=== PATIENT | male | born 1990 | race Hispanic/Latino ===

== ENCOUNTER 2022-07-25 20:26 | Emergency (ER) | payer SELFPAY ==
--- NOTE | ~2022-07-25 | CT_ITS ---
CT of the Abdomen and Pelvis: Indication: Abdominal pain Technique: 2.5 mm axial scans were obtained through the abdomen and pelvis following intravenous adm inistration of 100 cc of Omnipaque 350. Dose reduction technique was used on this scan by utilizing a utomated exposure control and iterative reconstruction technique. The dose-length product (DLP) was 3 39.85 mGy-cm. Findings: Scans through the lung bases are unremarkable. The liver, spleen, pancreas, gallbladder, adrenals and kidneys are within normal limits. No evidence of aortic aneurysm. No lymphadenopathy. No bowel obstruction or bowel wall thickening. There is no evidence to suggest acute appendicitis. Images through the pelvis were performed. Urinary bladder unremarkable. Prostate gland and seminal ve sicles are unremarkable. No ascites. Impression: No significant abnormalities seen. Reviewed, dictated and finalized at [facility]. 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
[2022-07-25 20:27] VITALS: BP 124/81; PULSE 99; RESP 14; O2SAT 98
[2022-07-25 21:38] LABS: Basophils Percent Auto 0.4 % (0.2-1.2); Eosinophils Absolute Auto 0.2 K/mm3 (0-0.3); Eosinophils Percent Auto 1.6 % (0-4.4); Hemoglobin 14.7 g/dL (14.0-18.0); Immature Granulocyte Absolute 0.07 K/mm3 (0.00-0.031); Immature Granulocyte Percent A 0.7 % (0-0.5); Lymphocytes Absolute Auto 0.66 K/mm3 (0.9-3.2); Lymphocytes Percent Auto 6.9 % (18.3-44.2); Mean Corpuscular Hemoglobin 31.5 pg (26-34); Mean Corpuscular Volume 89.9 fl (80-100); Mean Platelet Volume 11.1 fl (7.4-10.4); Monocytes Absolute Auto 0.4 K/mm3 (0.1-0.6); Monocytes Percent Auto 3.8 % (2.6-8.5); Neutrophils Absolute Auto 8.2 K/mm3 (1.3-6.7); Neutrophils Percent Auto 86.6 % (45.5-73.1); Platelet Count Result 166 k/mm3 (150-375); Red Blood Count 4.67 M/mm3 (4.6-6.20); Red Cell Distribution Width 12.5 % (11.5-14.5); White Blood Count 9.5 K/mm3 (4.5-10.0)
[2022-07-25 21:41] LABS: Appearance Urine Clear (Clear); Bilirubin Urine Negative (Negative); Blood Urine Negative (Negative); Color Urine Yellow (Yellow); Glucose Urine UA Trace mg/dL (Negative); Ketones Urine Trace mg/dL (Negative); Leukocyte Esterase Ur Negative LEU/UL (Negative); Nitrate Urine Negative (Negative); Protein Urine Negative (Negative); Specific Grav Ur 1.011 (1.001-1.035); Urobilinogen Urine 0.2 mg/dL (<2.0); pH Urine 6.5 (5.0-9.0)
[2022-07-25 21:50] LABS: Alanine Aminotransferase 38 U/L (6-50); Albumin Level 4.8 g/dL (3.5-5.1); Alkaline Phosphatase 111 U/L (38-126); Anion Gap 10 mmol/L (8-16); Aspartate Amino Transferase 41 U/L (17-59); Bilirubin,Total 0.5 mg/dL (0.2-1.3); Blood Urea Nitrogen 10 mg/dL (9-20); Calcium 8.6 mg/dL (8.4-10.2); Carbon Dioxide 25 mmol/L (22-30); Chloride 99 mmol/L (98-107); Estimated CRCL calculation 146 ml/min; Estimated Glomerular Filt Rate > 60; Glucose 192 mg/dL (65-110); Lipase 71 U/L (23-300); Potassium 3.3 mmol/L (3.4-5.0); Sodium 134 mmol/L (137-145)
[2022-07-25 21:53] LABS: Add Urine Microscopic? NO
[2022-07-25 22:42] VITALS: BP 123/90; PULSE 79; RESP 15; O2SAT 100
--- NOTE | 2022-07-25 23:23 | PC.NURSE ---
added on urine drug screen w/ lab
--- NOTE | 2022-07-25 23:23 | ED.GENADULT ---
HPI - General Adult General Chief complaint: Abdominal Pain Stated complaint: nausea Time Seen by Provider: 07/25/22 21:27 History of Present Illness HPI narrative: A [place] stone paver was used during all parts of communication. Is a 31-year-old male presenting ED with chief complaint of abdominal pain. The patient said the pain started at 6:45 p.m. while he was working. He has a stabbing pain located all over his stomach and body. It is 7/10 intensity and constant. He has never experienced pain like this before there are no alleviating or exacerbating symptoms. He says he feels like he is nauseous but he cannot throw up. He denies fevers diarrhea chest pain difficulty breathing urinary symptoms. The said that he was acting very bizarrely when they brought him in although he has now come down. patient denies use of drugs or alcohol. [facility] Social History Social History (Updated 07/25/22 @ 23:26 by Jim Li MD) Social History: Denies drugs alcohol tobacco Course Vital Signs Vital signs: Vital Signs Pulse Rate 99 07/25/22 20:27 Respiratory Rate 14 07/25/22 20:27 Blood Pressure 124/81 07/25/22 20:27 Pulse Oximetry 98 07/25/22 20:27 Oxygen Delivery Room Air 07/25/22 20:27 Pulse Rate 79 07/25/22 22:42 Respiratory Rate 15 07/25/22 22:42 Blood Pressure 123/90 07/25/22 22:42 Pulse Oximetry 100 07/25/22 22:42 Oxygen Delivery Room Air 07/25/22 20:27 Medical Decision Making Vital Signs Vital Signs: Vital Signs Pulse Rate 99 07/25/22 20:27 Respiratory Rate 14 07/25/22 20:27 Blood Pressure 124/81 07/25/22 20:27 Pulse Oximetry 98 07/25/22 20:27 Oxygen Delivery Room Air 07/25/22 20:27 Pulse Rate 79 07/25/22 22:42 Respiratory Rate 15 07/25/22 22:42 Blood Pressure 123/90 07/25/22 22:42 Pulse Oximetry 100 07/25/22 22:42 Oxygen Delivery Room Air 07/25/22 20:27 Lab Data 07/25/22 20:58 07/25/22 20:58 Labs: Lab Results 07/25/22 07/25/22 07/25/22 Range/Units 20:58 20:58 21:26 WBC 9.5 (4.5-10.0) K/mm3 RBC 4.67 (4.6-6.20) M/mm3 Hgb 14.7 (14.0-18.0) g/dL Hct 42.0 (42.0-52.0) % MCV 89.9 (80-100) fl MCH 31.5 (26-34) pg MCHC 35.0 (32-36) g/dl RDW 12.5 (11.5-14.5) % Plt Count 166 (150-375) k/mm3 MPV 11.1 H (7.4-10.4) fl Immature Gran % (Auto) 0.7 H (0-0.5) % Neut % (Auto) 86.6 H (45.5-73.1) % Lymph % (Auto) 6.9 L (18.3-44.2) % [place] % (Auto) 3.8 (2.6-8.5) % Eos % (Auto) 1.6 (0-4.4) % Baso % (Auto) 0.4 (0.2-1.2) % Lymph # (Auto) 0.66 L (0.9-3.2) K/mm3 [place] # (Auto) 0.4 (0.1-0.6) K/mm3 Eos # (Auto) 0.2 (0-0.3) K/mm3 Baso # (Auto) 0.0 (0.0-0.1) K/mm3 Abs Immat Gran (auto) 0.07 H (0.00-0.031) K/mm3 Absolute Neuts (auto) 8.2 H (1.3-6.7) K/mm3 Absolute Nucleated RBC 0.0 (0.0-0.012) K/mm3 Nucleated RBC % 0.0 (0.0-0.2) % Sodium 134 L (137-145) mmol/L Potassium 3.3 L (3.4-5.0) mmol/L Chloride 99 (98-107) mmol/L Carbon Dioxide 25 (22-30) mmol/L Anion Gap 10 (8-16) mmol/L BUN 10 (9-20) mg/dL Creatinine 0.50 L (0.7-1.3) mg/dL Estim Creat Clear Calc 146 ml/min Estimated GFR > 60 (59 - ) Glucose 192 H (65-110) mg/dL Calcium 8.6 (8.4-10.2) mg/dL Total Bilirubin 0.5 (0.2-1.3) mg/dL AST 41 (17-59) U/L ALT 38 (6-50) U/L Alkaline Phosphatase 111 (38-126) U/L Total Protein 8.0 (6.3-8.2) g/dL Albumin 4.8 (3.5-5.1) g/dL Lipase 71 (23-300) U/L Urine Color Yellow (Yellow) Urine Appearance Clear (Clear) Urine pH 6.5 (5.0-9.0) Ur Specific [place] 1.011 (1.001-1.035) Urine Protein Negative (Negative) mg/dL Urine Glucose (UA) Trace H (Negative) mg/dL Urine Ketones Trace (Negative) mg/dL Ur Blood (Man) Negative (Negative) Urine Nitrate Negative (Negative) Uri
--- NOTE | 2022-07-25 23:27 | ED.GENADULT ---
HPI - General Adult General Chief complaint: Abdominal Pain Stated complaint: nausea Time Seen by Provider: 07/25/22 21:27 History of Present Illness HPI narrative: HPI narrative: ? A [place]an russian language professor was used during all parts of communication. Is a 31-year-old male presenting ED with chief complaint of abdominal pain.? The patient said the pain started at 6:45 p.m. while he was working.? He has a stabbing pain located all over his stomach and body.? It is 7/10 intensity and constant.? He has never experienced pain like this before there are no alleviating or exacerbating symptoms.? He says he feels like he is nauseous but he cannot throw up.? He denies fevers diarrhea chest pain difficulty breathing urinary symptoms. ? The said that he was acting very bizarrely when they brought him in although he has now come down. patient denies use of drugs or alcohol. Related Data Allergies Allergy/AdvReac Type Severity Reaction Status Date / Time No Known Allergies Allergy Verified 07/25/22 23:26 [facility] Social History Social History Social History: Denies drugs alcohol tobacco Exam Narrative: APPEARANCE: No apparent distress. Patient is acting bizarrely during the interview. Slow to respond. Head: atraumatic. EYES: EOMI, pupils are 4 mm and reactive NOSE: Atraumatic NECK: Trachea midline RESPIRATORY: No increased rate of breathing clear to auscultation bilaterally CARDIOVASCULAR: RRR, ABDOMINAL: when is soft nontender with no guarding or rebound MUSCULOSKELETAl: No obvious deformities NEURO: Alert. Moving 4/4 extremities SKIN:: Warm, dry. Normal color PSYCHIATRIC: Normal affect Course Vital Signs Vital signs: Vital Signs Pulse Rate 99 07/25/22 20:27 Respiratory Rate 14 07/25/22 20:27 Blood Pressure 124/81 07/25/22 20:27 Pulse Oximetry 98 07/25/22 20:27 Oxygen Delivery Room Air 07/25/22 20:27 Pulse Rate 84 07/26/22 00:24 Respiratory Rate 16 07/26/22 00:24 Blood Pressure 104/76 07/26/22 00:24 Pulse Oximetry 100 07/26/22 00:24 Oxygen Delivery Room Air 07/25/22 20:27 Medical Decision Making MDM Narrative Medical decision making narrative: -Presentation: 31-year-old male presenting with diffuse abdominal pain. His abdominal exam is benign. his presentation is consistent with cyclic vomiting although he denies marijuana use. He has never been seen in our emergency department before. Lab work and CT abdomen pelvis will be obtained. -DDX includes but is not limited to: Appendicitis, gastritis, cyclic vomiting -Co-morbidities complicating care: none -Social determinants of health: [place]an speaker. He works in a factory. . -External Chart Review: None -Hx from independent Sources: none -Discussion of Management/Consultants: none -Independent interpretation of studies: CBC was within normal limits. No white blood cell count. Metabolic panel showed a potassium of 3.3. This will be repleted orally. Urinalysis was not indicative of infection. CT abdomen pelvis was negative for any acute findings. UDS positive for cannibinoids. Dx tests considered but not ordered: -Procedures: -Interventions: Zofran, Haldol, Pepcid, 2 L normal saline, 40 mEq potassium -Shared decision making / Disposition: Despite claims to the contrary, the patient's UDS was positive for cannabinoids. His symptoms are consistent with cyclic vomiting. Patient's symptoms improved with Haldol. Patient will be discharged. -RX Vital Signs Vital Signs: Vital Signs Pulse Rate 99 07/25/22 20:27 Respiratory Rate 14 07/25/22 20:27 Blood Pressure 124/81 07/25/22 20:27 Pulse Oximetry 98 07/25/22 20:27 Oxygen Delivery Room Air 07/25/22 20:27 Pulse Rate 84 07/26/22 00:24 Respiratory Rate 16 07/26/22 00:24 Blood Pressure 104/76 07/26/22 00:24 Pulse Oximetry 100 07/26/22 0
[2022-07-25] MEDS: ONDANSETRON INJ 4 MG/2 ML VIAL IV PUSH (23:41)
[2022-07-25] MEDS: HALOPERIDOL LACTATE 5 MG/ML VIAL IV PUSH (23:41)
[2022-07-25] MEDS: FAMOTIDINE 20 MG/2 ML VIAL IV PUSH (23:41)
[2022-07-25] MEDS: POTASSIUM CHLORIDE 20 MEQ TABLET 40 MEQ PO (23:46)
[2022-07-25] MEDS: SODIUM CHLORIDE 0.9% IV 2,000 ML 999 ML IV CONT (23:46)
[2022-07-26 00:24] VITALS: BP 104/76; PULSE 84; RESP 16; O2SAT 100
[2022-07-26 00:49] LABS: Amphetamine Screen Urine Negative (Negative); Barbiturate Screen Urine Negative (Negative); Benzodiazepines Screen Urine Negative (Negative); Cannabinoid Screen Urine Positive (Negative); Cocaine Screen Urine Negative (Negative); Methadone Screen Urine Negative (Negative); Opiate Screen Urine Negative (Negative); Phencyclidine Screen Urine Negative (Negative)
[2022-07-26 03:05] LABS: Ethanol < 10 mg/dL (<10)
== END 2022-07-26 01:37 | disposition home or self-care (01) ==
PROVIDERS: Emergency Provider Emergency Medicine; PCP Emergency Medicine
DX: R11.2 Nausea with vomiting, unspecified (principal); F12.90 Cannabis use, unspecified, uncomplicated
CPT/HCPCS: 36415; 74177; 80053; 80307; 81003; 83690; 85025; 96360; 96361; 96374; 96375; 99284; A9270; J1630; J2405; J7030; Q9967